=== PATIENT | male | born 1995 | race African-American/Black ===

== ENCOUNTER 2022-07-02 00:24 | Inpatient (IN) | payer OTHER ==
[2022-07-02] VITALS (180 sets, daily range): BP systolic 146–178; BP diastolic 86–131; PULSE 85–111; TEMP 97.4–98.1; O2SAT 93–100
[~2022-07-02] VITALS: Ht 170.2 cm; Wt 147.8 kg
[~2022-07-02 00:24] MED LIST: BIKTARVY 30-121 EACH PO; CARDURA 1MG1 MG PO; CATAPRES0.3 MG PO; COZAAR100 MG PO; DOXYCYCLINE HY100 MG PO; KEPPRA 500MG500 MG PO; MINOXIDIL 10 PO; NORCO 325 MG-51 TAB PO; NORVASC 10MG10 MG PO; PERCOCET 325 MG1 TA2 PO
[2022-07-02 01:02] LABS: BASO % 0.6 % (0.0-2.0); EOS % 0.2 % (0.0-4.0); GRAN # 3.9 K/mm3 (1.4-6.5); GRAN % 76.7 % (42.2-75.2); LYMPH # 0.8 K/mm3 (1.2-3.4); LYMPH % 15.6 % (20.0-51.0); MEAN CELL VOLUME 100 fl (80.0-100.0); MEAN CORPUSCULAR HGB CONC 33 g/dl (33.0-37.0); MEAN PLATELET VOLUME 11.7 fl (7.4-10.4); MONO # 0.3 K/mm3 (0.1-0.6); MONO % 6.5 % (1.7-9.3); PLATELET COUNT 115 K/mm3 (130-400); RED BLOOD COUNT 2.56 M/mm3 (4.20-5.60); REDCELL DISTRIBUTION WIDTH-CV 16.1 % (11.5-14.5)
[2022-07-02 01:03] LABS: HEMATOCRIT 25.5 % (42.0-52.0); HEMOGLOBIN 8.3 g/dl (13.5-18.0); MEAN CORPUSCULAR HEMOGLOBIN 32 pg (27-31)
[2022-07-02 01:21] LABS: ALBUMIN 3.5 gm/dL (3.5-5.0); BILIRUBIN,TOTAL 1.1 mg/dL (0.2-1.2); CALCIUM 9.2 mg/dL (8.4-10.2); CREATININE, serum 17.96 mg/dL (0.72-1.25); POTASSIUM 5.4 mmol/L (3.5-4.5); TOTAL PROTEIN 6.9 gm/dL (6.2-8.1)
[2022-07-02] MEDS ORDERED: NORVASC 10MG10 MG PO (02:22)
[2022-07-02] MEDS ORDERED: COREG 25MG25 MG/TAB PO (02:23)
[2022-07-02] MEDS ORDERED: BIKTARVY 50-201 EACH PO (02:24)
--- NOTE | 2022-07-02 11:32 | NUR ---
[employer]one Processing Supervisor met with Patient at bedside to conduct Care Managment Assessment and discuss discharge planning. Patient lives with his partner and cousin in [place], [place]. Patient is established with PCP through [facility] but does not vaerify insurance. Patient requests discharge Rx through [facility] in [place]. Patient denies the use of O2 and DME prior to admission and endorses independency with ADL/IADLs. Patient does not have advanced directives at this time and declines AD forms. Patient reports that the best familial contact is his Mother P:[phone] whom lives in [place]. SW will work with treatment team to assess for discharge needs.
--- NOTE | 2022-07-02 14:06 | NUR ---
Adult Live In Caregiver contacted attending physician Dr. Thomas in reference to Patient discharge needs. Dr. Thomas reccommends discharge home with no SW needs identified when discharged.
--- NOTE | 2022-07-02 14:11 | NUR ---
Around 0225 received report from day shift nurse. 0240 Pt arrived on the unit and was able to move self into the bed by walking and was stable. Oriented pt to room and call light. Assessed pt and did intake, home med. rec., and COVID screening. Pt is alert and oriented x4. Pt complained of back and neck pain with a rate of 8 out of 10. Morphine was not able to be given at the time since it was q2hr in [facility]. Gave report to day shift nurseEveline.
--- NOTE | 2022-07-02 19:04 | NUR ---
Pt arrived from dialysis around 1730. BP elevated, scheduled medications and PRN given. Complaining of constant pain in back and neck, PRN medications given as able. Resting in bed, bed in lowest position with call light within reach.
--- NOTE | 2022-07-02 23:48 | NUR ---
GAVE PT MORPHINE 2MG AT 2316 FOR #10 ABD PAIN. IT WAS UNRELIEVED STILL RATING AT #10 PAIN SECOND DOSE OF 2MG GIVEN AT 2343
[2022-07-03] VITALS (10 sets, daily range): BP systolic 154–200; BP diastolic 79–130; PULSE 83–92; TEMP 98–100
--- NOTE | 2022-07-03 00:48 | NUR ---
PTs BP 200/127 0002, HYDRALIZINE GIVEN 25MG PO BP RECHECKED 38 185/122, DR. VILLAREAL NOTIFIED 004 ORDERED TO RESTART PTS AT HOME CLONIDINE 0.3 TID WITH ONE DOSE STARTING NOW @ 0100
--- NOTE | 2022-07-03 11:18 | NUR ---
Patient awake, alert and oriented, anxious and irritated this AM. States his pain is not being controlled and wants to talk to Dr. Thomas. Informed that Dr. Thomas has ordered him to get dialysis today and has given a verbal order to give oxycodone 7.5mg every four hours. PRN given. Blood pressures high in the night and in the AM, Dr. Thomas aware. AM medications and PRN for blood pressure given. Hesitant to go to dialysis at first, but complied. While in dialysis, agitated again, asking for pain medication for uncontrolled back and neck pain. Per telephone order from Dr. Thomas, one time dose of morphine given. Pt now resting in bed completing dialysis treatment.
[2022-07-03 12:29] LABS: BASO % 0.3 % (0.0-2.0); EOS % 0.3 % (0.0-4.0); GRAN # 4.3 K/mm3 (1.4-6.5); GRAN % 74.9 % (42.2-75.2); LYMPH # 0.8 K/mm3 (1.2-3.4); LYMPH % 13.9 % (20.0-51.0); MEAN CORPUSCULAR HGB CONC 35 g/dl (33.0-37.0); MEAN PLATELET VOLUME 9.8 fl (7.4-10.4); MONO # 0.6 K/mm3 (0.1-0.6); MONO % 9.6 % (1.7-9.3); PLATELET COUNT 155 K/mm3 (130-400); RED BLOOD COUNT 2.86 M/mm3 (4.20-5.60); REDCELL DISTRIBUTION WIDTH-CV 16.1 % (11.5-14.5)
[2022-07-03 12:30] LABS: HEMATOCRIT 27.1 % (42.0-52.0); HEMOGLOBIN 9.4 g/dl (13.5-18.0); MEAN CELL VOLUME 95 fl (80.0-100.0); MEAN CORPUSCULAR HEMOGLOBIN 33 pg (27-31)
[2022-07-03 12:47] LABS: ALBUMIN 3.4 gm/dL (3.5-5.0); CALCIUM 9.4 mg/dL (8.4-10.2); PHOSPHOROUS 1.6 mg/dL (2.3-4.7)
--- NOTE | 2022-07-03 12:52 | NUR ---
Patient back to his room after dialysis. Requesting pain medication. See MAR. Requesting to see Dr. Thomas. Reinforced what he had been told earlier about Dr. Thomas seeing him after clinic. Resting in bed, bed in lowest position with call light within reach.
[2022-07-03 12:58] LABS: CREATININE, serum 3.71 mg/dL (0.72-1.25)
--- NOTE | 2022-07-03 14:45 | NUR ---
Patient anxious to leave. Discharge orders placed but not finalized. Notified Dr. Thomas who stated he wants to see patient in person and then will finalize orders. Pt informed and verbalizes understanding.
[2022-07-03] MEDS ORDERED: ROXICODONE 55 MG/TAB PO (15:06)
--- NOTE | 2022-07-03 15:13 | NUR ---
At 1500 Dr. Thomas instructed this RN to give PRN pain medication now prior to discharge.
--- NOTE | 2022-07-03 15:14 | NUR ---
SW met with patient to complete intake. Patient about to discharge. Family at bedside. Patient lives at home with his partner in [place]. Patient is fully independent with his ADL's and IADL's. He does not utilize any home oxygen. PCP is [facility] and he utilizes [facility] in [place] for prescriptions. Patient does not have a DPOA-HC established and does not wish to create one at this time. Discharge plan: Home
--- NOTE | 2022-07-03 15:20 | NUR ---
Educated on discharge instructions and new medications. Patient given physical script from Dr. Thomas for new medication. Pt verbalized understanding. Pt taken home by significant other, assisted out to car by nursing staff.
--- NOTE | 2022-07-03 15:31 | NUR ---
Initial visit; Patient thanked Principal Software Engineer for looking in on him and offering God's Blessings. Jaclyn Boothe was preparing to be discharged so Principal Software Engineer wanted to meet him and wish him well and God's blessings and keep him in her prayers.
== END 2022-07-03 15:22 | disposition home or self-care (01) | DRG 640 ==
LOC: COL.ER 00:24 → MEDICAL 01:38 → ICU 01:38 → MEDICAL 15:30
PROVIDERS: Emergency Medicine; Registered Nurse; ADMIT Internal Medicine Nephrology
PROC: 5A1D70Z Performance of Urinary Filtration, Intermittent, Less than 6 Hours Per Day (ICD-10-PCS; principal; 2022-07-02)
DX: E87.5 Hyperkalemia (principal); N18.6 End stage renal disease; N25.81 Secondary hyperparathyroidism of renal origin; I13.2 Hypertensive heart and chronic kidney disease with heart failure and with stage 5 chronic kidney disease, or end stage renal disease; I16.0 Hypertensive urgency; E87.70 Fluid overload, unspecified; D63.1 Anemia in chronic kidney disease; G89.29 Other chronic pain; M54.2 Cervicalgia; M54.9 Dorsalgia, unspecified; I48.0 Paroxysmal atrial fibrillation; Z21 Asymptomatic human immunodeficiency virus [HIV] infection status; I50.9 Heart failure, unspecified; D50.9 Iron deficiency anemia, unspecified; G40.909 Epilepsy, unspecified, not intractable, without status epilepticus; D69.6 Thrombocytopenia, unspecified; F17.210 Nicotine dependence, cigarettes, uncomplicated; Z99.2 Dependence on renal dialysis; Z23 Encounter for immunization; Z91.158 Patient's noncompliance with renal dialysis for other reason; Z88.6 Allergy status to analgesic agent; Z88.8 Allergy status to other drugs, medicaments and biological substances
CPT/HCPCS: J1756; J2270; J7050; Q5105